=== PATIENT | male | born 1970 | race Caucasian/White ===

== ENCOUNTER 2024-12-13 14:14 | Observation (INO) | payer OTHER ==
[~2024-12-13] VITALS: Ht 162.6 cm; Wt 87.2 kg
[2024-12-13] VITALS (9 sets, daily range): BP systolic 130–168; BP diastolic 84–108
[2024-12-13 14:51] LABS: BASO% 0.3 % (0-3); EOS% 0.5 % (0-8); HEMATOCRIT 43.2 % (39.0-50.0); HEMOGLOBIN 15.5 g/dl (14.0-18.0); IMMATURE GRANULOCYTES 0.1 % (0.0-5.0); LYMPH% 12.9 % (15-41); MEAN CELL VOLUME 87.6 fL CALC (80.0-100.0); MEAN CORPUSCULAR HGB 31.4 pG CALC (26.0-32.0); MEAN CORPUSCULAR HGB CONC 35.9 g/dL CAL (32.0-36.0); MONO% 6.4 % (2-13); NEUT# 8.86 thou/uL (1.82-7.42); NEUT% 79.8 % (42-76); RED BLOOD COUNT 4.93 mill/uL (4.70-6.10); RED CELL DISTRI WIDTH 12.3 % (11.5-15.5)
[2024-12-13 15:06] LABS: CHOLESTEROL HDL RATIO 3.9 (<4.4 (CALC))
[2024-12-13 15:08] LABS: ALBUMIN 4.8 g/dL (3.2-5.0); ALKALINE PHOSPHATASE 69 u/l (38-126); ANION GAP 17 (6-22 (CALC)); BILIRUBIN, TOTAL 1.5 mg/dL (0.2-1.3); BUN 8 mg/dL (9-20); BUN/CREATININE RATIO 7 (12-20 (CALC)); CARBON DIOXIDE 20 mmol/l (22-30); CHLORIDE 106 mmol/l (95-108); CREATININE 1.1 mg/dL (0.7-1.3); ESTIMATED GFR 80 ML/MIN (>=90 (CALC)); POTASSIUM 4.4 mmol/l (3.5-5.1); SGOT/AST 63 u/l (17-59); SODIUM 138 mmol/l (137-146); TOTAL PROTEIN 8.3 g/dL (6.3-8.2)
[2024-12-13 15:11] LABS: PROTHROMBIN TIME 10.4 SECONDS (9.0-12.5)
[2024-12-13] MEDS ORDERED: SODIUM CHLORIDE 0.9% 200 ML IV ONE (15:15)
[2024-12-13] MEDS ORDERED: SODIUM CHLORIDE 0.9% 1,000 ML IV ONE ×2 (15:15)
[2024-12-13] MEDS ORDERED: cefTRIAXone SODIUM 2 GM in SODIUM CHLORIDE 0.9% 100 ML IV ONE (15:15)
[2024-12-13] MEDS ORDERED: PIPERACILLIN Sodium-Tazobactam 3.375 GM in SODIUM CHLORIDE 0.9% 100 ML IV ONE (15:25)
[2024-12-13] MEDS ORDERED: ASPIRIN 81 MG/TAB PO ONE (17:55)
[2024-12-13 17:59] LABS: URINE BILIRUBIN - DIPSTICK Negative (NEGATIVE); URINE BLOOD DIPSTICK Trace-intact (NEGATIVE); URINE COLOR Yellow; URINE GLUCOSE - DIPSTICK Negative (NEGATIVE); URINE KETONE Negative (NEGATIVE); URINE LEUK ESTERASE Negative (NEGATIVE); URINE NITRITE - DIPSTICK Negative (Negative); URINE PROTEIN - DIPSTICK Trace mg/dL (NEG-TRACE); URINE SPECIFIC GRAVITY 1.015
[2024-12-13] MEDS ORDERED: MELATONIN 3 MG/TAB PO PRN (18:00)
[2024-12-13] MEDS ORDERED: ONDANSETRON 4 MG/TAB ODT SL PRN (18:00)
[2024-12-13] MEDS ORDERED: ACETAMINOPHEN 325 MG/TAB PO PRN (18:00)
[2024-12-13] MEDS ORDERED: Polyethylene Glycol 3350 17 GM/PKT PO PRN (18:00)
[2024-12-13] MEDS ORDERED: LACTATED RINGER'S 1,000 ML IV PRN (18:00)
[2024-12-13] MEDS ORDERED: NITROGLYCERIN 0.4 MG/TAB SL PRN (18:05)
[2024-12-13] MEDS ORDERED: LISINOPRIL10 MG PO (18:39)
[2024-12-13] MEDS ORDERED: ATORVASTATIN CALCIUM 40 MG/TAB PO SCH (21:00)
[2024-12-13] MEDS ORDERED: PIPERACILLIN Sodium-Tazobactam 3.375 GM in SODIUM CHLORIDE 0.9% 100 ML IV SCH (21:00)
[2024-12-13] MEDS ORDERED: ENOXAPARIN SODIUM 40 MG/0.4 ML SYR SC SCH (21:00)
[2024-12-14 00:03] VITALS: BP 121/66
[2024-12-14 04:30] VITALS: BP 136/89
[2024-12-14 05:27] LABS: BILIRUBIN, TOTAL 1.3 mg/dL (0.2-1.3); MAGNESIUM 2.1 mg/dL (1.6-2.3); POTASSIUM 3.9 mmol/l (3.5-5.1)
[2024-12-14 05:28] LABS: BASO% 0.3 % (0-3); EOS% 2.8 % (0-8); LYMPH% 32.7 % (15-41); MEAN CELL VOLUME 90.7 fL CALC (80.0-100.0); MEAN CORPUSCULAR HGB 31.9 pG CALC (26.0-32.0); MEAN CORPUSCULAR HGB CONC 35.1 g/dL CAL (32.0-36.0); MONO% 8.3 % (2-13); NEUT# 4.03 thou/uL (1.82-7.42); NEUT% 55.9 % (42-76); RED BLOOD COUNT 4.08 mill/uL (4.70-6.10); RED CELL DISTRI WIDTH 12.8 % (11.5-15.5)
[2024-12-14 05:32] LABS: ALBUMIN 3.5 g/dL (3.2-5.0); TOTAL PROTEIN 6.1 g/dL (6.3-8.2)
[2024-12-14 05:47] VITALS: BP 148/92
[2024-12-14] MEDS ORDERED: ASPIRIN 81 MG/TAB PO SCH (09:00)
[2024-12-14 12:00] VITALS: BP 124/78
[2024-12-14 14:51] VITALS: BP 124/75
[2024-12-14 18:42] VITALS: BP 132/84
[2024-12-15 00:33] VITALS: BP 122/65
[2024-12-15 03:08] VITALS: BP 109/57
[2024-12-15 04:59] LABS: BASO% 0.6 % (0-3); HEMATOCRIT 39.4 % (39.0-50.0); HEMOGLOBIN 14.1 g/dl (14.0-18.0); IMMATURE GRANULOCYTES 0.1 % (0.0-5.0); LYMPH% 29.6 % (15-41); MEAN CELL VOLUME 90.8 fL CALC (80.0-100.0); MEAN CORPUSCULAR HGB 32.5 pG CALC (26.0-32.0); MEAN CORPUSCULAR HGB CONC 35.8 g/dL CAL (32.0-36.0); MONO% 8.2 % (2-13); NEUT# 3.91 thou/uL (1.82-7.42); NEUT% 57.5 % (42-76); RED BLOOD COUNT 4.34 mill/uL (4.70-6.10); RED CELL DISTRI WIDTH 12.7 % (11.5-15.5)
[2024-12-15 05:15] LABS: ALBUMIN 3.7 g/dL (3.2-5.0); BILIRUBIN, TOTAL 1.6 mg/dL (0.2-1.3); CREATININE 1.1 mg/dL (0.7-1.3); POTASSIUM 4.1 mmol/l (3.5-5.1); TOTAL PROTEIN 6.5 g/dL (6.3-8.2)
[2024-12-15 06:48] VITALS: BP 135/75
[2024-12-15 10:23] VITALS: BP 140/89
[2024-12-15] MEDS ORDERED: ATORVASTATIN CA40 MG PO (11:23)
[2024-12-15] MEDS ORDERED: ASPIRIN81 MG PO (11:23)
[2024-12-15] MEDS ORDERED: METRONIDAZOLE500 MG PO (11:24)
[2024-12-15] MEDS ORDERED: CIPROFLOXACN500 MG PO (11:24)
== END 2024-12-15 13:36 | disposition designated cancer center or children's hospital (05) | DRG 313 ==
LOC: ED 14:14 → ED-I 17:00 → ED 17:55 → ED-I 17:56 → MS2 23:00
PROVIDERS: Family Medicine; ADMIT Internal Medicine; ATTEND Internal Medicine
DX: R07.89 Other chest pain (principal); E87.20 Acidosis, unspecified; K57.32 Diverticulitis of large intestine without perforation or abscess without bleeding; R20.2 Paresthesia of skin; I10 Essential (primary) hypertension; G40.909 Epilepsy, unspecified, not intractable, without status epilepticus; T42.76XA Underdosing of unspecified antiepileptic and sedative-hypnotic drugs, initial encounter; Z91.128 Patient's intentional underdosing of medication regimen for other reason; Z20.822 Contact with and (suspected) exposure to COVID-19
CPT/HCPCS: G0378; J1650; J2543; Q9967